=== PATIENT | female | born 1945 | race Hispanic/Latino ===

== ENCOUNTER → 2017-12-14 | Outpatient (CLI) | payer OTHER ==
[~2017-12-14] MED LIST: ASPI-1197 PO; BENA1TAB18 PO; CALCIUM PO; CALTRATE PLUS PO; CARV6.25 PO; CHOL500050 PO; FERS325 PO; HYDR-4068 PO; HYDR25TA PO; LANS30CA55 PO; METF500T6 PO; MULT-1077 PO; OMEP20CA10 PO; ONDA4TAB4 PO; OXYB5TAB10 PO; RANO500T2 PO; SIMV20TA2 PO; TRAM50TA4 PO; TRAZ-147 PO; TUMERIC PO; [UNRECOGNIZED DRUG - OTHER] PO; [UNRECOGNIZED DRUG - OTHER] PO; oxybutynin PO
== END | disposition home or self-care (01) ==
LOC: RAH 12:34
PROVIDERS: ATTEND Family Medicine
DX: N63.20 Unspecified lump in the left breast, unspecified quadrant (principal)
CPT/HCPCS: 76641

== ENCOUNTER 2017-12-23 07:12 | Day surgery (SDC) | payer OTHER ==
[~2017-12-23] VITALS: Ht 149.9 cm; Wt 77.3 kg
[~2017-12-23 07:12] MED LIST changes: -ASPI-1197 PO; -BENA1TAB18 PO; -CALTRATE PLUS PO; -LANS30CA55 PO; -ONDA4TAB4 PO; -RANO500T2 PO; -SIMV20TA2 PO; +SODIUM CHLORIDE 0.9% 1000ML 1,000 ML IV ONE; -TRAM50TA4 PO; -oxybutynin PO
[2017-12-23 07:30] VITALS: BP 200/95
[2017-12-23] MEDS ORDERED: TRAM50TA4 PO (08:09)
[2017-12-23 08:40] VITALS: BP 136/70
== END 2017-12-23 09:15 ==
LOC: DAH 07:12
PROVIDERS: ATTEND Internal Medicine Gastroenterology
DX: Z12.11 Encounter for screening for malignant neoplasm of colon (principal); K57.30 Diverticulosis of large intestine without perforation or abscess without bleeding; Z68.43 Body mass index [BMI] 50.0-59.9, adult; K21.9 Gastro-esophageal reflux disease without esophagitis; I10 Essential (primary) hypertension; E78.5 Hyperlipidemia, unspecified; Z79.899 Other long term (current) drug therapy; Z98.890 Other specified postprocedural states; Z90.710 Acquired absence of both cervix and uterus; Z98.84 Bariatric surgery status; Z88.8 Allergy status to other drugs, medicaments and biological substances
CPT/HCPCS: 82948 ×2; 93005; A4606; G0121; J7030

== ENCOUNTER → 2018-03-09 | Outpatient (CLI) | payer OTHER ==
[~2018-03-09] VITALS: Ht 149.9 cm; Wt 75.3 kg
[~2018-03-09] MED LIST changes: +REGADENOSON 0.4 MG/5 ML PF SYG IVP SCH; -SODIUM CHLORIDE 0.9% 1000ML 1,000 ML IV ONE; +TRAM50TA4 PO; -TRAZ-147 PO; +TRAZ-187 PO
== END | disposition home or self-care (01) ==
LOC: SHCH 08:30
PROVIDERS: ATTEND Internal Medicine Cardiovascular Disease
DX: I25.10 Atherosclerotic heart disease of native coronary artery without angina pectoris (principal)
CPT/HCPCS: 78452; 93017; 96374; A9500 ×2; J2785; 94060; 94727; 94729

== ENCOUNTER → 2018-10-25 | Outpatient (CLI) | payer OTHER ==
[~2018-10-25] MED LIST changes: +AEC81 PO; +ALBU90AE IH; +BENA40TA9 PO; +CALC1TAB2 PO; -CALCIUM PO; +FOLI0.4T2 PO; -HYDR-4068 PO; +HYDR12.54 PO; -HYDR25TA PO; +L.AC1CAP6 PO; +METF-444 PO; -METF500T6 PO; +ONDA4TAB10 PO; -REGADENOSON 0.4 MG/5 ML PF SYG IVP SCH; +SIMV20TA6 PO; +TOBR5DRO48 OP; -TUMERIC PO; -[UNRECOGNIZED DRUG - OTHER] PO
== END | disposition home or self-care (01) ==
LOC: RAH 09:10
PROVIDERS: ATTEND Family Medicine
DX: Z12.31 Encounter for screening mammogram for malignant neoplasm of breast (principal)
CPT/HCPCS: 77067

== ENCOUNTER → 2018-11-02 | Outpatient (CLI) | payer OTHER | END | disposition home or self-care (01) | LOC: RAH 08:58 | PROVIDERS: ATTEND Family Medicine | DX: R92.8 Other abnormal and inconclusive findings on diagnostic imaging of breast (principal) | CPT/HCPCS: 77065 ==

== ENCOUNTER → 2019-06-16 | Outpatient (CLI) | payer OTHER ==
[~2019-06-16] MED LIST changes: +OMEP-50 PO; -OMEP20CA10 PO
== END | disposition home or self-care (01) ==
LOC: SHCH 09:03
PROVIDERS: ATTEND Internal Medicine Cardiovascular Disease
DX: I06.9 Rheumatic aortic valve disease, unspecified (principal); I25.10 Atherosclerotic heart disease of native coronary artery without angina pectoris
CPT/HCPCS: 93306

== ENCOUNTER 2020-02-21 02:00 | Emergency (ER) | payer OTHER ==
[~2020-02-21 02:00] MED LIST changes: -OMEP-50 PO; +OMEP20CA12 PO; -OXYB5TAB10 PO; +OXYB5TAB15 PO; +SIMV-43 PO; -SIMV20TA6 PO
[2020-02-21] MEDS ORDERED: DIPHENHYDRAMINE HCL 25 MG CAPSULE ONE (03:16)
[2020-02-21 03:33] LABS: BASOPHILS % (AUTO) 1.1 % (0.0-5.0); EOSINOPHILS % (AUTO) 1.1 % (0.0-8.0); HEMATOCRIT 37.2 % (36-48); MEAN CORPUSCULAR HEMOGLOBIN 29.2 pg (27.0-33.0); MEAN CORPUSCULAR VOLUME 91.2 fL (79-99); MONOCYTES % (AUTO) 9.9 % (3.0-13.0); NEUTROPHILS % (AUTO) 54.7 % (40.0-77.0); PLATELET COUNT (AUTO) 132 K/uL (130-400); RED BLOOD CELL COUNT(AUTO) 4.08 MIL/uL (4.00-5.50); RED CELL DISTRIBUTION WIDTH 14.6 % (11.0-15.5); WHITE BLOOD COUNT (AUTO) 4.7 K/uL (4.8-10.8)
[2020-02-21 03:41] LABS: CREATININE 0.7 mg/dL (0.5-1.5); POTASSIUM 4.1 mmol/L (3.5-5.1)
[2020-02-21 03:50] LABS: ALBUMIN 3.6 g/dL (3.5-5.0); BILIRUBIN,TOTAL 0.4 mg/dL (0.2-1.0); TOTAL PROTEIN, SERUM 7.2 g/dL (6.0-8.3)
== END 2020-02-21 04:26 | disposition home or self-care (01) ==
LOC: EDH 02:00
DX: S60.561A Insect bite (nonvenomous) of right hand, initial encounter (principal); I25.10 Atherosclerotic heart disease of native coronary artery without angina pectoris; E11.9 Type 2 diabetes mellitus without complications; I10 Essential (primary) hypertension; K21.9 Gastro-esophageal reflux disease without esophagitis; Z90.49 Acquired absence of other specified parts of digestive tract; Z90.710 Acquired absence of both cervix and uterus; Z91.013 Allergy to seafood; Z88.2 Allergy status to sulfonamides; Z91.041 Radiographic dye allergy status; W57.XXXA Bitten or stung by nonvenomous insect and other nonvenomous arthropods, initial encounter; Y93.89 Activity, other specified; Y92.89 Other specified places as the place of occurrence of the external cause; Y99.8 Other external cause status
CPT/HCPCS: 36415; 80053; 82550; 84484; 85025; 93005; 99284; Q0163

== ENCOUNTER → 2021-01-30 | Outpatient (CLI) | payer OTHER ==
[~2021-01-30] MED LIST changes: -FOLI0.4T2 PO; +FOLI0.4T6 PO
== END | disposition home or self-care (01) ==
LOC: SHCH 08:24
PROVIDERS: ATTEND Internal Medicine Cardiovascular Disease
DX: I08.8 Other rheumatic multiple valve diseases (principal); I73.9 Peripheral vascular disease, unspecified; I87.2 Venous insufficiency (chronic) (peripheral); I10 Essential (primary) hypertension; E66.9 Obesity, unspecified; E78.5 Hyperlipidemia, unspecified; R55 Syncope and collapse
CPT/HCPCS: 93306; 93356; 93925; 93970

== ENCOUNTER → 2021-02-07 | Outpatient (CLI) | payer OTHER ==
[~2021-02-07] VITALS: Ht 149.9 cm; Wt 76.2 kg
[~2021-02-07] MED LIST changes: +REGADENOSON 0.4 MG/5 ML PF SYG IVP SCH
== END | disposition home or self-care (01) ==
LOC: SHCH 08:52
PROVIDERS: ATTEND Internal Medicine Cardiovascular Disease
DX: R07.89 Other chest pain (principal); I10 Essential (primary) hypertension; M54.2 Cervicalgia; R53.83 Other fatigue; I25.10 Atherosclerotic heart disease of native coronary artery without angina pectoris
CPT/HCPCS: 78452; 93017; 96374; A9500 ×2

== ENCOUNTER → 2021-02-13 | Outpatient (CLI) | payer OTHER ==
[~2021-02-13] MED LIST changes: -REGADENOSON 0.4 MG/5 ML PF SYG IVP SCH
== END | disposition home or self-care (01) ==
LOC: RAH 15:03
PROVIDERS: ATTEND Internal Medicine
DX: Z12.31 Encounter for screening mammogram for malignant neoplasm of breast (principal)
CPT/HCPCS: 77067

== ENCOUNTER → 2022-02-19 | Outpatient (CLI) | payer OTHER ==
[~2022-02-19] MED LIST changes: -BENA40TA9 PO; +BENA40TA92 PO
== END | disposition home or self-care (01) ==
LOC: RAH 15:19
PROVIDERS: ATTEND Internal Medicine
DX: Z12.31 Encounter for screening mammogram for malignant neoplasm of breast (principal)
CPT/HCPCS: 77067

== ENCOUNTER → 2022-07-17 | Outpatient (CLI) | payer OTHER | END | disposition home or self-care (01) | LOC: SHCH 09:00 | PROVIDERS: ATTEND Internal Medicine Cardiovascular Disease | DX: I87.2 Venous insufficiency (chronic) (peripheral) (principal) | CPT/HCPCS: 93970 ==

== ENCOUNTER → 2022-09-02 | Outpatient (CLI) | payer OTHER ==
[2022-09-02] MEDS: REGADENOSON 0.4 MG/5 ML PF SYG IVP SCH (12:47)
== END | disposition home or self-care (01) ==
LOC: SHCH 08:44
PROVIDERS: ATTEND Internal Medicine Cardiovascular Disease
DX: I20.9 Angina pectoris, unspecified (principal); R07.89 Other chest pain
CPT/HCPCS: 78452; 96374; 93017; J2785; A9500 ×2

== ENCOUNTER 2022-09-11 07:17 | Day surgery (SDC) | payer OTHER ==
[2022-09-05 15:45] LABS: BASOPHILS % (AUTO) 0.6 % (0.0-5.0); EOSINOPHILS % (AUTO) 1.3 % (0.0-8.0); HEMATOCRIT 38.5 % (36-48); LYMPHOCYTES % (AUTO) 19.7 % (21.0-51.0); MEAN CORPUSCULAR HEMOGLOBIN 30.2 pg (27.0-33.0); MEAN CORPUSCULAR HGB CONC 32.5 g/dL (32.0-36.0); MONOCYTES % (AUTO) 8.6 % (3.0-13.0); NEUTROPHILS % (AUTO) 69.5 % (40.0-77.0); PLATELET COUNT (AUTO) 175 K/uL (130-400); RED BLOOD CELL COUNT(AUTO) 4.14 MIL/uL (4.00-5.50); RED CELL DISTRIBUTION WIDTH 13.5 % (11.0-15.5)
[2022-09-05 16:04] LABS: CREATININE 0.7 mg/dL (0.5-1.5); POTASSIUM 4.1 mmol/L (3.5-5.1)
[2022-09-05 16:19] LABS: APPEARANCE,URINE CLEAR (CLEAR); BILIRUBIN,URINE NEGATIVE (NEGATIVE); COLOR,URINE YELLOW (YELLOW); GLUCOSE, URINE (UA) NEGATIVE (NEGATIVE); KETONES,URINE NEGATIVE (NEGATIVE); LEUKOCYTE ESTERASE ,URINE NEGATIVE Leu/uL (NEGATIVE); NITRATE,URINE NEGATIVE (NEGATIVE); OCCULT BLOOD,URINE NEGATIVE (NEGATIVE); PH,URINE 5.5 (5.0-8.0); PROTEIN,URINE NEGATIVE (NEGATIVE); UROBILINOGEN,URINE 0.2 mg/dL (0.2-1.0)
[2022-09-10 08:46] VITALS: BP 166/74
[2022-09-11] VITALS (15 sets, daily range): BP systolic 148–167; BP diastolic 54–73
[~2022-09-11] VITALS: Ht 147.3 cm; Wt 77.7 kg
[~2022-09-11 07:17] MED LIST changes: +ACET-2079 PO; -AEC81 PO; -ALBU90AE IH; +ALBUTEROL IH; +BOTULINUM TOXIN TYPE A 100 UNITS/VIAL INJ SCH; -CALC1TAB2 PO; +CEFTRIAXONE 1G VIAL IVPB SCH; -CHOL500050 PO; +CITA-108 PO; +FAMO20TA8 PO; +FLUT1AER IH; -FOLI0.4T6 PO; +GABA-529 PO; -HYDR12.54 PO; -L.AC1CAP6 PO; -METF-444 PO; +MONT-39 PO; +NITR0.4T50 SL; +NITR100C4 PO; -OMEP20CA12 PO; -ONDA4TAB10 PO; +PANT40TA54 PO; +POLY15DR29 OU; -SIMV-43 PO; -TOBR5DRO48 OP; -[UNRECOGNIZED DRUG - OTHER] PO
[2022-09-11] MEDS ORDERED: 0.9%NACL 1000ML 1,000 ML IV ONE (07:20)
[2022-09-11] MEDS ORDERED: DEXAMETHASONE SOD PHOSPHATE 10MG/ML 1ML VIAL ONE (09:05)
[2022-09-11] MEDS ORDERED: LIDOCAINE HCL MPF 1% 5ML VIAL ONE (09:05)
[2022-09-11] MEDS ORDERED: PROPOFOL 10 MG/ML 20ML VIAL IV ONE (09:06)
[2022-09-11] MEDS ORDERED: ONDANSETRON 4MG INJ ONE (09:06)
[2022-09-11] MEDS ORDERED: FENTANYL CITRATE PF 50 MCG/1 ML 2ML VIAL ONE (09:06)
[2022-09-11] MEDS ORDERED: EPHEDRINE SULFATE 50 MG/ML AMPULE ONE (10:13)
[2022-09-11] MEDS ORDERED: GLYCOPYRROLATE 1 MG/5 ML SYRINGE ONE (10:17)
== END 2022-09-11 16:31 | disposition home or self-care (01) ==
LOC: DAH 07:17
PROVIDERS: ATTEND Urology
DX: N39.41 Urge incontinence (principal); Z20.822 Contact with and (suspected) exposure to COVID-19; I10 Essential (primary) hypertension; E66.9 Obesity, unspecified; J44.9 Chronic obstructive pulmonary disease, unspecified; E11.51 Type 2 diabetes mellitus with diabetic peripheral angiopathy without gangrene; Z79.899 Other long term (current) drug therapy; Z98.890 Other specified postprocedural states; Z98.84 Bariatric surgery status; Z90.49 Acquired absence of other specified parts of digestive tract; Z90.710 Acquired absence of both cervix and uterus; Z88.8 Allergy status to other drugs, medicaments and biological substances; Z88.3 Allergy status to other anti-infective agents; Z91.013 Allergy to seafood
CPT/HCPCS: 80048; 85025; 87088; 87426; 81003; 36415; 71045; 93005; 52287; 82948 ×2; A6260; A4663; J7120; C1758; J3010; J3490 ×3; J1100; J7030; J0696; J2704; J2405; J0585; A4358; A4215; A4223; A4222; A4221; A4600

== ENCOUNTER → 2023-02-23 | Outpatient (CLI) | payer OTHER ==
[~2023-02-23] MED LIST changes: -BOTULINUM TOXIN TYPE A 100 UNITS/VIAL INJ SCH; -CEFTRIAXONE 1G VIAL IVPB SCH
== END | disposition home or self-care (01) ==
LOC: RAH 14:41
PROVIDERS: ATTEND Internal Medicine
DX: Z12.31 Encounter for screening mammogram for malignant neoplasm of breast (principal)
CPT/HCPCS: 77067

== ENCOUNTER → 2023-12-02 | Outpatient (CLI) | payer OTHER ==
[~2023-12-02] MED LIST changes: -OXYB5TAB15 PO; +OXYB5TAB20 PO
== END | disposition home or self-care (01) ==
LOC: SHCH 10:47
PROVIDERS: ATTEND Internal Medicine Cardiovascular Disease
DX: I35.0 Nonrheumatic aortic (valve) stenosis (principal); I11.9 Hypertensive heart disease without heart failure; R07.9 Chest pain, unspecified; R06.09 Other forms of dyspnea; E11.9 Type 2 diabetes mellitus without complications; E78.5 Hyperlipidemia, unspecified
CPT/HCPCS: 93306

== ENCOUNTER 2023-12-31 08:04 | Day surgery (SDC) | payer OTHER ==
[2023-12-25 13:30] LABS: BASOPHILS # (AUTO) 0.05 K/uL (0.00-0.20); BASOPHILS % (AUTO) 0.8 % (0.0-5.0); EOSINOPHILS # (AUTO) 0.07 K/uL (0.00-0.70); EOSINOPHILS % (AUTO) 1.1 % (0.0-8.0); HEMATOCRIT 39.6 % (36-48); IMMATURE GRANULOCYTE ABSOLUTE 0.02 K/uL (0-1); LYMPHOCYTES # (AUTO) 1.3 K/uL (1.0-4.8); LYMPHOCYTES % (AUTO) 20.6 % (21.0-51.0); MEAN CORPUSCULAR HEMOGLOBIN 29.4 pg (27.0-33.0); MEAN CORPUSCULAR HGB CONC 33.1 g/dL (32.0-36.0); MEAN CORPUSCULAR VOLUME 88.8 fL (79-99); MONOCYTES # (AUTO) 0.6 K/uL (0.1-1.0); MONOCYTES % (AUTO) 9.2 % (3.0-13.0); NEUTROPHILS # (AUTO) 4.3 K/uL (1.8-7.7); PLATELET COUNT (AUTO) 157 K/uL (130-400); RED BLOOD CELL COUNT(AUTO) 4.46 MIL/uL (4.00-5.50); RED CELL DISTRIBUTION WIDTH 15.9 % (11.0-15.5); WHITE BLOOD COUNT (AUTO) 6.3 K/uL (4.8-10.8)
[2023-12-25 13:32] LABS: ADD UA MICROSCOPIC YES; APPEARANCE,URINE CLOUDY (CLEAR); BILIRUBIN,URINE NEGATIVE (NEGATIVE); COLOR,URINE YELLOW (YELLOW); GLUCOSE, URINE (UA) NEGATIVE (NEGATIVE); KETONES,URINE NEGATIVE (NEGATIVE); LEUKOCYTE ESTERASE ,URINE 75 Leu/uL (NEGATIVE); NITRATE,URINE 2+ (NEGATIVE); OCCULT BLOOD,URINE NEGATIVE (NEGATIVE); PROTEIN,URINE NEGATIVE (NEGATIVE); UROBILINOGEN,URINE 0.2 mg/dL (0.2-1.0)
[2023-12-25 13:34] LABS: BACTERIA,URINE FEW /HPF (None Seen); MUCUS,URINE RARE LPF (None Seen); SQUAMOUS EPITHELIAL CELL,UR RARE /HPF (0-2); WBC,URINE 26-50 /HPF (0-1)
[2023-12-25 13:37] LABS: CREATININE 0.6 mg/dL (0.5-1.0); POTASSIUM 3.9 mmol/L (3.5-5.1)
[2023-12-25 13:39] LABS: INR 0.95 (0.85-1.15); PROTHROMBIN TIME 11.2 SEC (9.6-11.6)
[2023-12-25 13:41] LABS: PARTIAL THROMBOPLASTIN TIME 29.2 SEC (26.3-35.5)
[2023-12-25 14:25] VITALS: BP 184/88; PULSE 48; RESP 18
[2023-12-31] VITALS (17 sets, daily range): BP systolic 124–178; BP diastolic 54–98; PULSE 54–74; RESP 12–20
[~2023-12-31] VITALS: Ht 147.3 cm; Wt 74.0 kg
[~2023-12-31 08:04] MED LIST changes: -ACET-2079 PO; +AMLO-257 PO; -BENA40TA92 PO; -CITA-108 PO; +ESOM20CA39 PO; -FAMO20TA8 PO; -FERS325 PO; -GABA-529 PO; +ISOS30TA92 PO; -MONT-39 PO; +OXYB15TA19 PO; -OXYB5TAB20 PO; -PANT40TA54 PO; -POLY15DR29 OU
[2023-12-31] MEDS ORDERED: BOTULINUM TOXIN TYPE A 100 UNITS/VIAL INJ SCH (09:00)
[2023-12-31] MEDS: 0.9%NACL 1000ML 1,000 ML IV ONE (09:14)
[2023-12-31] MEDS: CEFTRIAXONE 1G VIAL IVPB SCH (09:14)
[2023-12-31] MEDS: CEFTRIAXONE 1G VIAL ONE (09:14)
[2023-12-31] MEDS: BOTULINUM TOXIN TYPE A 100 UNITS/VIAL INJ ONE ×2 (09:30→10:56)
[2023-12-31] MEDS ORDERED: LIDOCAINE PF 100MG/5ML (2%) SYRINGE 5ML ONE (10:30)
[2023-12-31] MEDS ORDERED: PROPOFOL 10 MG/ML 20ML VIAL IV ONE (10:30)
[2023-12-31] MEDS ORDERED: FENTANYL CITRATE PF 50 MCG/1 ML 2ML VIAL ONE (10:30)
[2023-12-31] MEDS ORDERED: MIDAZOLAM HCL 1 MG/ML 2ML VIAL ONE (10:30)
[2023-12-31] MEDS ORDERED: GLYCOPYRROLATE 0.2 MG/ML 5 ML VIAL ONE (10:49)
[2023-12-31] MEDS: HYDRALAZINE 20MG/ML VIAL ONE (12:23)
== END 2023-12-31 14:30 | disposition home or self-care (01) ==
LOC: DAH 08:04
PROVIDERS: ATTEND Urology
DX: N39.46 Mixed incontinence (principal); N32.81 Overactive bladder; N30.80 Other cystitis without hematuria; I10 Essential (primary) hypertension; E11.51 Type 2 diabetes mellitus with diabetic peripheral angiopathy without gangrene; E66.9 Obesity, unspecified; J44.9 Chronic obstructive pulmonary disease, unspecified; Z79.01 Long term (current) use of anticoagulants; Z79.899 Other long term (current) drug therapy; Z98.890 Other specified postprocedural states; Z90.49 Acquired absence of other specified parts of digestive tract; Z68.34 Body mass index [BMI] 34.0-34.9, adult
CPT/HCPCS: 80048; 85025; 85610; 85730; 87077; 87088; 87186; 81001; 36415; 71045; 93005; 52287; 82948 ×2; A6260; A4663; J3010; J7030; J2001; J0360; J0696 ×2; J2250; J2704; J3490; J0585 ×2; A4358; A4215 ×2; A4223; A4335; A4222; A4221; A4600

== ENCOUNTER 2024-01-08 16:50 | Emergency (ER) | payer OTHER ==
[~2024-01-08] VITALS: Ht 147.3 cm; Wt 74.4 kg
[2024-01-08] MEDS: HYDROXYZINE 25 MG TABLET PO ONE (17:19)
[2024-01-08] MEDS: MORPHINE 2 MG SYG IVP ONE (17:19)
[2024-01-08 17:24] LABS: BASOPHILS # (AUTO) 0.04 K/uL (0.00-0.20); BASOPHILS % (AUTO) 0.8 % (0.0-5.0); EOSINOPHILS # (AUTO) 0.05 K/uL (0.00-0.70); HEMATOCRIT 36.8 % (36-48); IMMATURE GRANULOCYTE ABSOLUTE 0.01 K/uL (0-1); LYMPHOCYTES # (AUTO) 1.5 K/uL (1.0-4.8); LYMPHOCYTES % (AUTO) 28.4 % (21.0-51.0); MEAN CORPUSCULAR HEMOGLOBIN 29.4 pg (27.0-33.0); MEAN CORPUSCULAR HGB CONC 32.9 g/dL (32.0-36.0); MEAN CORPUSCULAR VOLUME 89.3 fL (79-99); MONOCYTES # (AUTO) 0.4 K/uL (0.1-1.0); MONOCYTES % (AUTO) 8.2 % (3.0-13.0); NEUTROPHILS # (AUTO) 3.2 K/uL (1.8-7.7); NEUTROPHILS % (AUTO) 61.4 % (40.0-77.0); PLATELET COUNT (AUTO) 155 K/uL (130-400); RED BLOOD CELL COUNT(AUTO) 4.12 MIL/uL (4.00-5.50); RED CELL DISTRIBUTION WIDTH 15.4 % (11.0-15.5); WHITE BLOOD COUNT (AUTO) 5.2 K/uL (4.8-10.8)
[2024-01-08 17:38] LABS: CREATININE 0.5 mg/dL (0.5-1.0); POTASSIUM 5.1 mmol/L (3.5-5.1)
[2024-01-08 17:42] LABS: ALBUMIN 3.1 g/dL (3.5-5.0); BILIRUBIN,TOTAL 0.6 mg/dL (0.2-1.0); MAGNESIUM 1.9 mg/dL (1.80-2.40); TOTAL PROTEIN, SERUM 6.9 g/dL (6.0-8.3)
[2024-01-08 17:51] LABS: B-TYPE NATRIURETIC PEPTIDE 133 pg/mL (0-100)
[2024-01-08 18:31] LABS: ABG BASE EXCESS 2.5 mmol/L (-2.0-3.0); ABG HCO3 26.4 mmol/L (21.0-28.0); ABG OXYGEN SATURATION 96.8 % (95.0-99.0); ABG PCO2 39 mmHg (32-45); ABG PH 7.453 (7.35-7.450); DEVICE COMMENT NURSE; PO2, ARTERIAL BG 84.9 mmHg (83.0-108.0); VENT MODE, BG ROOM AIR (ROOM AIR)
[2024-01-08 18:54] LABS: ADD UA MICROSCOPIC NO; APPEARANCE,URINE CLEAR (CLEAR); BILIRUBIN,URINE NEGATIVE (NEGATIVE); COLOR,URINE LIGHT-YELLOW (YELLOW); GLUCOSE, URINE (UA) NEGATIVE (NEGATIVE); KETONES,URINE NEGATIVE (NEGATIVE); LEUKOCYTE ESTERASE ,URINE NEGATIVE Leu/uL (NEGATIVE); NITRATE,URINE NEGATIVE (NEGATIVE); OCCULT BLOOD,URINE NEGATIVE (NEGATIVE); PH,URINE 5.5 (5.0-8.0); PROTEIN,URINE NEGATIVE (NEGATIVE); UROBILINOGEN,URINE 0.2 mg/dL (0.2-1.0)
[2024-01-08] MEDS ORDERED: IOHEXOL 350 MG/ML 100ML INFUS..BTL IV ONE (19:41)
[2024-01-08] MEDS: SOLU-MEDROL 40MG VIAL IVP ONE (21:09)
[2024-01-08 22:25] VITALS: BP 163/60; PULSE 98; RESP 18; O2SAT 99
[2024-01-08 22:39] LABS: COVID19 (SARS ANTIGEN RAPID) PRESUMPTIVE NEGATIVE (NEGATIVE); INFLUENZA TYPE A Negative For Type A (NEGATIVE); INFLUENZA TYPE B Negative For Type B (NEGATIVE)
[2024-01-08] MEDS ORDERED: IBUP-2070 PO (23:10)
== END 2024-01-08 23:16 | disposition home or self-care (01) ==
LOC: EDH 16:50
DX: S93.491A Sprain of other ligament of right ankle, initial encounter (principal); I10 Essential (primary) hypertension; J47.9 Bronchiectasis, uncomplicated; Z20.822 Contact with and (suspected) exposure to COVID-19; Z88.2 Allergy status to sulfonamides; Z88.8 Allergy status to other drugs, medicaments and biological substances; W18.39XA Other fall on same level, initial encounter; Y93.89 Activity, other specified; Y92.89 Other specified places as the place of occurrence of the external cause; Y99.8 Other external cause status
CPT/HCPCS: 99285; 70450; 96374; 71045; 96375; 87426; 82550; 83735; 84484; 80053; 82803; 83880; 85025; 85378; 87804 ×2; 81003; 36415; 73600; 72170; 72125; 71270; 93005; 36600; J2270; J2920; Q9967

== ENCOUNTER → 2024-04-25 | Outpatient (CLI) | payer OTHER ==
[~2024-04-25] MED LIST changes: -ESOM20CA39 PO; +ESOM20CA51 PO; +IBUP-2070 PO
== END | disposition home or self-care (01) ==
LOC: SHCH 11:13
PROVIDERS: ATTEND Internal Medicine Cardiovascular Disease
DX: I87.2 Venous insufficiency (chronic) (peripheral) (principal)
CPT/HCPCS: 93971

== ENCOUNTER → 2024-05-02 | Outpatient (CLI) | payer OTHER | END | disposition home or self-care (01) | LOC: SHCH 08:24 | PROVIDERS: ATTEND Internal Medicine Cardiovascular Disease | DX: Z09 Encounter for follow-up examination after completed treatment for conditions other than malignant neoplasm (principal); I87.2 Venous insufficiency (chronic) (peripheral) | CPT/HCPCS: 93971 ==

== ENCOUNTER → 2024-07-25 | Outpatient (CLI) | payer OTHER | END | disposition home or self-care (01) | LOC: SHCH 10:02 | PROVIDERS: ATTEND Internal Medicine Cardiovascular Disease | DX: I87.2 Venous insufficiency (chronic) (peripheral) (principal) | CPT/HCPCS: 93970 ==

== ENCOUNTER → 2024-10-13 | Outpatient (CLI) | payer OTHER | END | disposition home or self-care (01) | LOC: SHCH 13:46 | PROVIDERS: ATTEND Internal Medicine Cardiovascular Disease | DX: I20.0 Unstable angina (principal); R07.9 Chest pain, unspecified | CPT/HCPCS: 93306 ==

== ENCOUNTER → 2024-11-30 | Outpatient (CLI) | payer OTHER ==
--- NOTE | 2024-12-07 08:20 | HMCSR ---
APPROVED REPORT Laterality: Bilateral Indications i73.9 VELOCITY AND DOPPLER WAVEFORM ANALYSIS SURGERY TECHNICIAN (R) 135.3cm/sec, Triphasic, SURGERY TECHNICIAN (L) 135.4cm/sec, Triphasic, Prof Fem Art. (R) 88.3cm/sec, Biphasic, Prof Fem Art. (L) 70.6cm/sec, Biphasic, Fem Art Prox. (R) 107.7cm/sec, Triphasic, Fem Art Prox. (L) 112.3cm/sec, Triphasic, Fem Art Mid. (R) 93.9cm/sec, Triphasic, Fem Art Mid. (L) 107.7cm/sec, Triphasic, Fem Art Dist (R) 88.8cm/sec, Triphasic, Fem Art Dist. (L) 79.9cm/sec, Triphasic, Pop Art(AK) (R) 51.2cm/sec, Biphasic, Pop Art (AK) (L) 49.0cm/sec, Biphasic, Pop Art (Fossa)(R) 62.8cm/sec, Biphasic, Pop Art (Fossa) (L) 69.5cm/sec, Biphasic, Pop Art(BK) (R) 79.9cm/sec, Biphasic, Pop Art (BK) (L) 65.6cm/sec, Biphasic, NEWS PRODUCTION ASSISTANT Prox. (R) 78.7cm/sec, Biphasic, NEWS PRODUCTION ASSISTANT Prox. (L) 63.5cm/sec, Biphasic, NEWS PRODUCTION ASSISTANT Mid. (R) 90.3cm/sec, Biphasic, NEWS PRODUCTION ASSISTANT Mid. (L) 65.6cm/sec, Biphasic, NEWS PRODUCTION ASSISTANT Dist. (R) 57.9cm/sec, Biphasic, NEWS PRODUCTION ASSISTANT Dist. (L) 53.1cm/sec, Biphasic, Per Art Prox. (R) 55.5cm/sec, Biphasic, Per Art Prox. (L) 43.5cm/sec, Biphasic, Per Art Mid. (R) 37.3cm/sec, Biphasic, Per Art Mid. (L) 55.2cm/sec, Biphasic, Per Art Dist. (R) 46.9cm/sec, Biphasic, Per Art Dist. (L) 50.4cm/sec, Biphasic, KHUSHI Prox. (R) 104.2cm/sec, Biphasic, KHUSHI Prox. (L) 66.1cm/sec, Biphasic, KHUSHI Mid. (R) 53.0cm/sec, Biphasic KHUSHI Mid. (L) 90.5cm/sec, Biphasic, KHUSHI Dist. (R) 96.9cm/sec, Biphasic, KHUSHI Dist. (L) 100.7cm/sec, Biphasic, Technologist Impression Multiphasic waveforms seen in bilateral lower extremities. Conclusion No evidence of significant arterial insufficiency of bilateral lower extremities. Conclusion No evidence of significant arterial insufficiency of bilateral lower extremities.
--- NOTE | 2024-12-07 08:21 | HMCSR ---
APPROVED REPORT Bilateral Lower Extremity Venous Study for DVT., Venous Competence. Indications i87.1, i87.2 Vein Imaging CFV (R): Normal flow, augmentation and compression. No evidence of DVT. 10.8mm 0.0ms of reflux. SFJ (R): Normal flow, augmentation and compression. No evidence of DVT. FEM (R): Normal flow, augmentation and compression. No evidence of DVT. POP (R): Normal flow, augmentation and compression. No evidence of DVT. DFV (R): Normal flow, augmentation and compression. No evidence of DVT. PTV (R): Normal flow, augmentation and compression. No evidence of DVT. Peroneals (R): Normal flow, augmentation and compression. No evidence of DVT. CFV (L): Normal flow, augmentation and compression. No evidence of DVT. 12.2mm 0.0ms of reflux. SFJ (L): Normal flow, augmentation and compression. No evidence of DVT. FEM (L): Normal flow, augmentation and compression. No evidence of DVT. POP (L): Normal flow, augmentation and compression. No evidence of DVT. DFV (L): Normal flow, augmentation and compression. No evidence of DVT. PTV (L): Normal flow, augmentation and compression. No evidence of DVT. Peroneals (L): Normal flow, augmentation and compression. No evidence of DVT. Technologist Impression Deep veins of the bilateral lower extremities appear patent and compressible without thrombus. No deep venous reflux seen. Superficial venous insufficiency noted in the [facility]GS[facility] at [facility]. RGSV junction 4.4mm 389ms residual mid calf 2.0mm 0.0ms RSSV prox 3.4mm 0.0ms mid 1.9mm 0.0ms LGSV junction 6.9mm 511ms thigh 4.3mm 0.0ms not seen distally LSSV - not seen Conclusion No deep venous reflux seen. Superficial venous insufficiency noted in the LGSV at [facility]. Conclusion No deep venous reflux seen. Superficial venous insufficiency noted in the LGSV at [facility].
== END | disposition home or self-care (01) ==
LOC: SHCH 10:20
PROVIDERS: ATTEND Internal Medicine Cardiovascular Disease
DX: I73.9 Peripheral vascular disease, unspecified (principal); I87.2 Venous insufficiency (chronic) (peripheral)
CPT/HCPCS: 93925; 93970